=== PATIENT | female | born 1975 | race African-American/Black ===

== ENCOUNTER 2016-06-01 08:01 | Day surgery (SDC) | payer OTHER ==
[~2016-06-01] VITALS: Ht 162.6 cm; Wt 152.0 kg
[2016-06-01] MEDS ORDERED: CLINDAMYCIN 600 MG in DEXTROSE 5% 50 ML IV ONE (08:30)
[2016-06-01] MEDS ORDERED: VENTOLIN H0.09 MG/Ac IH (09:18)
[2016-06-01] MEDS ORDERED: ZESTRIL20 MG PO (09:18)
[2016-06-01] MEDS ORDERED: LIDOCAINE 1% 50 ML ONE (10:11)
[2016-06-01] MEDS ORDERED: BUPIVACAINE-MPF 0.25% 30 ML VIAL INJ ONE (10:11)
[2016-06-01] MEDS ORDERED: fentaNYL 0.05 MG/ML VIAL ONE ×2 (10:17→11:08)
[2016-06-01] MEDS ORDERED: SEVOFLURANE 250 ML BTL INH ONE (10:25)
[2016-06-01] MEDS ORDERED: ONDANSETRON 4 MG/2 ML VIAL IVP ONE (10:25)
[2016-06-01] MEDS ORDERED: PROPOFOL 200 MG/20 ML VIAL IV ONE (10:25)
[2016-06-01] MEDS ORDERED: KETOROLAC 30 MG/ML VIAL IVP PRN (10:55)
[2016-06-01] MEDS ORDERED: ONDANSETRON 4 MG/2 ML VIAL IVP PRN (10:55)
[2016-06-01] MEDS ORDERED: HYDROmorphone 1 MG/ML AMP IVP PRN (11:35)
[2016-06-01] MEDS ORDERED: MORPHINE SULFATE 4 MG/ML SYR IV PRN (11:35)
[2016-06-01] MEDS ORDERED: ONDANSETRON 4 MG/2 ML VIAL IV PRN (11:35)
[2016-06-01] MEDS ORDERED: HYDROcodone/APAP 5/325 MG 1 TAB TAB PO PRN (11:35)
[2016-06-01] MEDS ORDERED: MORPHINE SULFATE 2 MG/ML SYR IVP PRN (11:35)
[2016-06-01] MEDS ORDERED: KETOROLAC 30 MG/ML VIAL ONE (11:45)
== END 2016-06-01 12:55 | disposition home or self-care (01) ==
LOC: MMU 08:01 → MDS 08:01
PROVIDERS: ATTEND Surgery
DX: R19.03 Right lower quadrant abdominal swelling, mass and lump (principal); I10 Essential (primary) hypertension; N80.9 Endometriosis, unspecified; E66.9 Obesity, unspecified; Z68.43 Body mass index [BMI] 50.0-59.9, adult; K21.9 Gastro-esophageal reflux disease without esophagitis; J45.909 Unspecified asthma, uncomplicated; D64.9 Anemia, unspecified
CPT/HCPCS: 13101; 22901; 71010; 93005; J1885; J2001; J3010; J3490; J7060; J7120